=== PATIENT | female | born 2000 ===

== ENCOUNTER → 2025-08-16 | Outpatient (CLI) | payer OTHER ==
[2025-08-18 08:39] LABS: HEPATITIS B SURFACE ANTIBODY <3.10 IU/L
[2025-08-18 14:56] LABS: HIV 1,2 COMBO ANTIGEN/ANTIBODY Negative
[2025-08-18 19:37] LABS: HCV QNT BY NAAT (IU/ML) Not Detected; HCV QNT BY NAAT (LOG IU/ML) Not Detected; HCV QNT BY NAAT INTERP Not Detected (Not Detected)
== END | disposition home or self-care (01) ==
LOC: LAB SHORT 12:03 → LAB 12:03
PROVIDERS: Chiropractor
DX: Z20.9 Contact with and (suspected) exposure to unspecified communicable disease (principal)
CPT/HCPCS: 84460; 87340; 87389; 87522

== ENCOUNTER → 2025-09-27 | Outpatient (CLI) | payer OTHER ==
[2025-09-29 13:03] LABS: HIV 1,2 COMBO ANTIGEN/ANTIBODY Negative (Negative)
[2025-09-29 19:20] LABS: HCV QNT BY NAAT (IU/ML) Not Detected; HCV QNT BY NAAT (LOG IU/ML) Not Detected; HCV QNT BY NAAT INTERP Not Detected (Not Detected)
== END ==
LOC: LAB SHORT 12:43 → LAB 12:43
PROVIDERS: Chiropractor
DX: Z20.9 Contact with and (suspected) exposure to unspecified communicable disease (principal)
CPT/HCPCS: 87389; 87522